=== PATIENT | female | born 1945 | race Asian ===

== ENCOUNTER 2018-09-09 09:31 | Observation (INO) | payer OTHER ==
--- NOTE | 2018-09-08 22:15 | HP ---
Date/Time of Note Date/Time of Note DATE: 09/08/18 TIME: 22:02 Assessment/Plan VTE Prophylaxis SCD applied (from Nsg): Yes SCD contraindicated: low risk/ambulating Pharmacological prophylaxis: NA/contraindicated Pharm contraindication: low risk/ambulating Lines/Catheters IV Catheter Type (from Nrsg): Peripheral IV Central line still needed: No Urinary Cath still in place: No (Pt can void prior to the procedure) Assessment/Plan Assessment/Plan A: Postmenopausal bleeding. P: Hysteroscopy with a D and C. HPI/ROS Admit Date/Time Admit Date/Time September 09, 2018 Hx of Present Illness 73 y.o. G0 on vaginal estrogen therapy twice a week and mcronized progesterone 100 mg qHS and last on systemic HRT 2 years ago and initially had some postmenopausal bleeding in February 2018. An endometrial biopsy was attempted in the office but was unable to get into the endometrial cavity.The ling, on ultrasound, was thin at 3 mm. She had another bout of bleeding in July and another biopsy was attempted but, again, the biopsy result showed no endometrial tissue. Thus we are at the hospital to do a hysteroscopy for direct visualization of the cavity followed by a D and C. Of note the pt is recently and her new 's first of uterine CA. ROS Constitutional: no complaints Respiratory: no complaints Cardiovascular: no complaints Gastrointestinal: no complaints Genitourinary: no complaints Musculoskeletal: no complaints Neurologic: no complaints Psychological: no complaints, nl mood/affect PMH/Family/Social Past Medical History Medical History: no pertinent history Medications Progesterone 100 mg q day. Vaginal estrogen twice a week. Coded Allergies: No Known Allergy (Unverified , 11/20/11) Past Surgical History Past Surgical Hx: no surgical history Family History Significant Family History: no pertinent family hx Social History Alcohol Use: none Smoking Status: Never smoker Drug Use: none Exam/Review of Systems Vital Signs Vitals BP 112/60 HR 69 BMI 23 Exam Constitutional: alert, oriented, well developed Psych: no complaints, nl mood/affect Respiratory: clear to auscultation, normal air movement Cardiovascular: nl pulses Gastrointestinal: soft, nl liver, spleen, non-tender Genitourinary - Female: nl adnexae, nl external genitalia, uterus (small, menopausal) Neurological: nl mental status, nl speech, nl strength KISHORE CRUZ MD September 08, 2018 22:12
[~2018-09-09] VITALS: Ht 156.2 cm; Wt 49.5 kg
[2018-09-09] VITALS (27 sets, daily range): BP systolic 108–154; BP diastolic 65–87; PULSE 50–75; RESP 12–37; Ht 156.2 cm; Wt 49.5 kg
[~2018-09-09 09:31] MED LIST: MULT1CAP20
[2018-09-09] MEDS ORDERED: PROG100C5 PO (10:18)
[2018-09-09] MEDS ORDERED: MULT-718 PO (10:20)
[2018-09-09] MEDS ORDERED: EST42.5C VAG (10:20)
[2018-09-09] MEDS ORDERED: VITA1CAP7 PO (10:21)
[2018-09-09] MEDS ORDERED: OMEG-158 PO (10:22)
[2018-09-09] MEDS ORDERED: UBID100C24 PO (10:24)
[2018-09-09] MEDS ORDERED: CITRACAL PO (10:25)
--- NOTE | 2018-09-09 10:53 | PREAC ---
Date/Time of Note Date/Time of Note DATE: 09/09/18 TIME: 10:51 Anesthesia Eval and Record Evaluation Time Pre-Procedure Interview DATE: 09/09/18 TIME: 10:51 Age 73 Sex female NPO: 8 hrs Preoperative diagnosis Post Menopausal Bleed Planned procedure Hystroscopy, Biopsy Past Medical History Past Medical History: Includes Musculoskeletal: Osteoarthritis Surgery & Anesthesia Issues No known issue Meds Anticoagulation: No Beta Cullen within 24 hr: No Reason Beta Cullen not given: Pt. not on B-Cullen Reported Medications Calcium Citrate* (Citracal*) 950 Mg Tab, 950 MG PO DAILY, TAB 09/09/18 Ubidecarenone (Coq-10) 100 Mg Capsule, 100 MG PO DAILY, CAP 09/09/18 [place]-3/Dha/Epa/Fish Oil (FISH OIL 1,000 MG SOFTGEL) 1 Each Capsule, 1 EACH PO DAILY, CAP 09/09/18 Vitamin B Complex (Super B-50 Complex) 1 Each Capsule, 1 EACH PO DAILY, CAP 09/09/18 Multivitamin (One Daily) 1 Each Tablet, 1 EACH PO DAILY, TAB 09/09/18 Estradiol* (Estrace* Vag) 0.01%-42.5GM Vaginal Cream..g., 1 APPLIC VAG THREE TIMES A WEEK, TUB 09/09/18 Progesterone,Micronized* (Progesterone*) 100 Mg Capsule, 100 MG PO HS, CAP 09/09/18 Discontinued Reported Medications Multivitamins (Replace) 1 Cap Capsule 11/20/11 Current Medications Lactated Ringer's 1,000 ml @ 125 mls/hr Q8H IV ; Start 09/09/18 at 09:00 Meds reviewed: Yes Allergies Coded Allergies: No Known Allergy (Unverified , 09/09/18) Allergies Reviewed: Yes Labs/Studies Labs Reviewed: Reviewed by anesthesiologist test: N/A Pre-procedure Exam Last vitals Vital Signs Date Temp Pulse Resp B/P (MAP) Pulse Ox O2 O2 Flow FiO2 Time Delivery Rate 09/09/18 97.7 53 16 134/72 98 Room Air 10:44 (92) Airway: Adequate mouth opening Mallampati: Mallampati II Teeth: Normal Lung: Normal Heart: Normal ASA Physical Status ASA physical status: 2 Emergency: None Planned Anesthetic General/MAC: LMA Pre-operative Attestations Prior to commencing anesthesia and surgery, the patient was re-evaluated, there was verification of: *The patient's identity *The results of appropriate recent lab work and preoperative vital signs *The above evaluation not changing prior to induction *Anesthetic plan, risk benefits, alternative and complications discussed with patient/family; questions answered; patient/family understands, accepts and wishes to proceed. CONNER SCHMIDT MD September 09, 2018 10:53
[2018-09-09] MEDS: LACTATED RINGER'S 1,000 ML IV SCH ×3 (11:01→23:51)
[2018-09-09] MEDS ORDERED: CEFAZOLIN 1 GM INJ ONE (11:27)
[2018-09-09] MEDS ORDERED: PROPOFOL 20 ML ONE (11:27)
[2018-09-09] MEDS ORDERED: FENTAnyl 50 MCG/ML VIAL ONE (11:28)
[2018-09-09] MEDS ORDERED: KETOROLAC 30 MG INJ ONE (11:28)
[2018-09-09] MEDS ORDERED: MIDAZOLAM 1 MG/ML 2 ML INJ ONE (11:28)
[2018-09-09] MEDS ORDERED: ONDANSETRON 4 MG INJ ONE (11:28)
[2018-09-09] MEDS ORDERED: PHENYLephrine (100 MCG/ML) 10ML SYG ONE (12:33)
--- NOTE | 2018-09-09 13:29 | PAC ---
Date/Time of Note Date/Time of Note DATE: 09/09/18 TIME: 13:28 Post-Anesthesia Notes Post-Anesthesia Note Last documented vital signs Vital Signs Date Temp Pulse Resp B/P (MAP) Pulse Ox O2 O2 Flow FiO2 Time Delivery Rate 09/09/18 97.7 53 16 134/72 98 Room Air 10:44 (92) Activity: WNL Respiratory function: WNL Cardiovascular function: WNL Mental status: Baseline Pain reasonably controlled: Yes Hydration appropriate: Yes Nausea/Vomiting absent: Yes CONNER SCHMIDT MD September 09, 2018 13:29
[2018-09-09] MEDS ORDERED: FENTAnyl 50 MCG/ML VIAL IV PRN (13:30)
[2018-09-09] MEDS ORDERED: HYDROmorphONE 1 MG/5 ML IV SYRINGE IV PRN (13:30)
[2018-09-09] MEDS ORDERED: ONDANSETRON 4 MG INJ IV PRN (13:30)
--- NOTE | 2018-09-09 14:59 | PD.PPDC ---
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
--- NOTE | 2018-09-09 15:06 | OPR ---
Date/Time of Note Date/Time of Note DATE: 09/09/18 TIME: 15:05 Operative Report Procedure Date: September 09, 2018 Preoperative Diagnosis Postmenopausal bleeding. Postoperative Diagnosis Same. Operation/Procedure Performed Hysteroscopy with dilitation and curretage. 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 Anesthesia Type: general Estimated Blood Loss: minimal Transfusion none Specimen ECC and EMC. Grafts/Implants none Complications none Pt Condition Post Procedure: stable Disposition: PACU Procedure Description Pt was brought to the OR and placed under general anesthesia. Her legs were brought up to [facility] and she was prepped and draped in the usual sterile fashion. Initially placed a weighted speculum but it pushed the cervix back so grasped the anterior lip of the cervix with a tenaculum and removed the speculum. Then dilated the cervix with Hegar dilators. Was only able to use the 1st 2 sizes and could not use the 3rd on at all. The sizings were not visible on the dilators. The uterus sounded to 7 cm. There was very distinct passing of the internal os and on up to the fundus. The uterus had been very small on an office US. Proceeded with the hysteroscopy and could pass through the internal os up to the fundus but the cavity would not balloon open even though there was no saline coming out of the os. Possibly the tension in the nulliparous uterus was responsible. Feel very confident that I was looking at the fundus but could not identify the tubal ostia due to the lack of distention. Did not see any lesions of note. Then removed the scope and proceeded to D and C. Did the ECC 1st and then the EMC with the smallest currette. Minimal tissue was retrieved despite scraping very firmly along all lateral moore and the fundus. The specimens were handed off separately, the procedure was terminated and the pt was awakened and transported to the recovery room in excellent condition. KISHORE CRUZ MD September 09, 2018 15:06
[2018-09-09] MEDS ORDERED: ACETAMINOPHEN 325 MG TAB PO PRN (18:30)
[2018-09-09] MEDS ORDERED: ACETAMINOPHEN 500 MG TAB PO PRN (18:30)
[2018-09-10] VITALS: PULSE 60
[2018-09-10 00:16] VITALS: BP 96/55; PULSE 52; RESP 18
[2018-09-10 04:00] VITALS: BP 97/56; PULSE 53; PULSE 57; RESP 18
[2018-09-10 07:25] VITALS: BP 131/69; PULSE 19; RESP 19
[2018-09-10 08:24] VITALS: PULSE 72
[2018-09-10] MEDS: LACTATED RINGER'S 1,000 ML IV SCH (09:00)
--- NOTE | 2018-09-12 17:36 | RADRPT ---
Vent Rate: 54 bpm RR Interval: 1104 msec MA Interval: 175 msec QRS Duration: 136 msec QT Interval: 476 msec QTC Interval: 453 msec P-R-T [place]: 72 - 91 - 55 degrees Sinus rhythm...normal P axis, V-rate 50- 99 RBBB and LPFB... Electronically Signed By: Fernando Yan
== END 2018-09-10 11:20 | disposition home or self-care (01) ==
LOC: SDS 09:31 → 6WM 17:03
PROVIDERS: ADMIT Obstetrics & Gynecology; ATTEND Obstetrics & Gynecology
DX: N85.8 Other specified noninflammatory disorders of uterus (principal); N95.0 Postmenopausal bleeding
CPT/HCPCS: 58558; 88305; 93005; G0378; J0690; J1885; J2250; J2405; J3010; J7120; J2370